=== PATIENT | female | born 1965 | race Caucasian/White ===

== ENCOUNTER → 2019-12-02 10:09 | Outpatient (BNVA) | payer MEDICARE, MEDICAID, SELFPAY | PROVIDERS: PCP Family Medicine; Visit Provider Urology | DX: N30.10 Interstitial cystitis (chronic) without hematuria (principal); K40.90 Unilateral inguinal hernia, without obstruction or gangrene, not specified as recurrent | CPT/HCPCS: 81001 ==

== ENCOUNTER → 2019-12-30 12:22 | Outpatient (BNVA) | payer MEDICARE, MEDICAID, SELFPAY | PROVIDERS: Family Provider Nurse Practitioner Family; PCP Family Medicine; Visit Provider Family Medicine | DX: E03.9 Hypothyroidism, unspecified (principal); M19.90 Unspecified osteoarthritis, unspecified site; G25.81 Restless legs syndrome; F41.9 Anxiety disorder, unspecified; G62.9 Polyneuropathy, unspecified; F32.9 Major depressive disorder, single episode, unspecified; E78.5 Hyperlipidemia, unspecified; J30.2 Other seasonal allergic rhinitis; J44.9 Chronic obstructive pulmonary disease, unspecified; E11.9 Type 2 diabetes mellitus without complications; K52.9 Noninfective gastroenteritis and colitis, unspecified; K21.9 Gastro-esophageal reflux disease without esophagitis; G47.00 Insomnia, unspecified | CPT/HCPCS: 80053; 80061; 83036; 84443; 85025 ==

== ENCOUNTER → 2020-03-30 11:00 | Outpatient (BNVA) | payer MEDICARE, MEDICAID, SELFPAY | PROVIDERS: PCP Family Medicine; Visit Provider Family Medicine | DX: E78.5 Hyperlipidemia, unspecified (principal); M25.50 Pain in unspecified joint; E11.9 Type 2 diabetes mellitus without complications; E03.9 Hypothyroidism, unspecified; G25.81 Restless legs syndrome; J44.9 Chronic obstructive pulmonary disease, unspecified; K21.9 Gastro-esophageal reflux disease without esophagitis; G47.00 Insomnia, unspecified | CPT/HCPCS: 80053; 80061; 83036; 84443; 84550; 85025; 85651; 86431 ==

== ENCOUNTER → 2020-04-22 11:55 | Outpatient (BNVA) | payer MEDICARE, MEDICAID, SELFPAY | PROVIDERS: PCP Family Medicine; Visit Provider Urology | DX: N30.10 Interstitial cystitis (chronic) without hematuria (principal); K40.90 Unilateral inguinal hernia, without obstruction or gangrene, not specified as recurrent | CPT/HCPCS: 80053; 81001; 87077; 87086; 87186 ==

== ENCOUNTER → 2020-06-22 16:42 | Outpatient (BNVA) | payer MEDICARE, MEDICAID, SELFPAY | PROVIDERS: PCP Family Medicine; Visit Provider Family Medicine | DX: E78.5 Hyperlipidemia, unspecified (principal); E11.9 Type 2 diabetes mellitus without complications; E03.9 Hypothyroidism, unspecified; Z79.84 Long term (current) use of oral hypoglycemic drugs; Z79.899 Other long term (current) drug therapy | CPT/HCPCS: 80053; 80061; 83036; 84443; 85025 ==

== ENCOUNTER → 2022-03-08 16:38 | Outpatient (BNVA) | payer MEDICARE, MEDICAID, OTHER, SELFPAY | PROVIDERS: PCP Nurse Practitioner Family; Visit Provider Nurse Practitioner Family | DX: M25.561 Pain in right knee (principal); E78.5 Hyperlipidemia, unspecified; J44.9 Chronic obstructive pulmonary disease, unspecified; E11.9 Type 2 diabetes mellitus without complications; K21.9 Gastro-esophageal reflux disease without esophagitis; E03.9 Hypothyroidism, unspecified; Z78.0 Asymptomatic menopausal state; Z12.31 Encounter for screening mammogram for malignant neoplasm of breast; Z79.899 Other long term (current) drug therapy | CPT/HCPCS: 73562; 80053; 80061; 82306; 83036; 84443 ==

== ENCOUNTER 2022-04-07 13:32 | Outpatient (CLI) | payer MEDICARE, MEDICAID, OTHER, SELFPAY ==
--- NOTE | 2022-04-07 13:39 | MM_ITS ---
WS: [id number] BILATERAL 3D TOMOSYNTHESIS DIGITAL SCREENING MAMMOGRAPHY WITH CAD CLINICAL INFORMATION: screening HISTORY: Screening mammogram. No current complaints. COMPARISON: TECHNIQUE: Bilateral CC and MLO views. FINDINGS: Scattered fibroglandular densities bilaterally. A few incidental punctate calcifications. No suspicio us focal mass, asymmetry, calcifications, or architectural distortion. No evidence of malignancy. MM/[place] [id number] IMPRESSION: BI-RADS: 2-Benign FOLLOW UP: 1 Year Follow-up Recommend return to annual screening mammography.
== END 2022-04-07 13:33 | disposition home or self-care (01) ==
LOC: RAD 13:32
PROVIDERS: PCP Nurse Practitioner Family; Visit Provider Nurse Practitioner Family
DX: Z12.31 Encounter for screening mammogram for malignant neoplasm of breast (principal)
CPT/HCPCS: 77063; 77067

== ENCOUNTER 2022-06-29 14:10 | Outpatient (CLI) | payer MEDICARE, MEDICAID, SELFPAY ==
--- NOTE | 2022-06-29 15:00 | XR_ITS ---
WS: [id number] SCREENING DEXA SCAN [employer] CLINICAL INFORMATION: screening COMPARISON: None. FINDINGS: The L1-L4 bone mineral density measures 1.090 g/cm2. This corresponds to a T score score of -0.8 and Z score of -0.8. Left femoral neck bone mineral density measures 0.832 g/cm2. This corresponds to a T score of -1.4 an d Z score of -1.3. Right femoral neck bone mineral density measures 0.846 g/cm2. This corresponds to a T score -1.3of an d Z score of -1.2. Mean femoral neck bone mineral density measures 0.839 g/cm2. This corresponds to a T score of -1.3 an d Z score of -1.3. XR/XR DEXA axial skeleton* [id number] IMPRESSION: Normal bone mineralization lumbar spine. Osteopenia femoral necks. Patient's FRAX calculated 10 year probability for major osteoporotic fracture i s 8.7 % and osteoporotic hip fracture is 1.3%.
== END 2022-06-29 14:11 | disposition home or self-care (01) ==
LOC: RAD 14:11
PROVIDERS: PCP Nurse Practitioner Family; Visit Provider Nurse Practitioner Family
DX: Z78.0 Asymptomatic menopausal state (principal); M85.88 Other specified disorders of bone density and structure, other site
CPT/HCPCS: 77080

== ENCOUNTER → 2022-07-11 11:43 | Outpatient (BNVA) | payer MEDICARE, MEDICAID, SELFPAY | PROVIDERS: PCP Nurse Practitioner Family; Visit Provider Nurse Practitioner Family | DX: G62.9 Polyneuropathy, unspecified (principal); E03.9 Hypothyroidism, unspecified; K21.9 Gastro-esophageal reflux disease without esophagitis; E11.9 Type 2 diabetes mellitus without complications; J44.9 Chronic obstructive pulmonary disease, unspecified; G25.81 Restless legs syndrome; M79.7 Fibromyalgia; F41.8 Other specified anxiety disorders; E78.5 Hyperlipidemia, unspecified; L30.9 Dermatitis, unspecified; F32.9 Major depressive disorder, single episode, unspecified; J30.2 Other seasonal allergic rhinitis; N30.10 Interstitial cystitis (chronic) without hematuria; F51.5 Nightmare disorder; G47.33 Obstructive sleep apnea (adult) (pediatric); R94.39 Abnormal result of other cardiovascular function study; M85.80 Other specified disorders of bone density and structure, unspecified site | CPT/HCPCS: 80053; 80061; 83036 ==

== ENCOUNTER 2022-09-19 09:26 | Outpatient (CLI) | payer MEDICARE, MEDICAID, SELFPAY | END 2022-09-19 09:27 | disposition home or self-care (01) | LOC: SLEEP 09-23 09:34 | PROVIDERS: PCP Nurse Practitioner Family; Visit Provider Nurse Practitioner Family | DX: G47.33 Obstructive sleep apnea (adult) (pediatric) (principal) | CPT/HCPCS: G0399 ==

== ENCOUNTER → 2022-09-21 13:21 | Outpatient (BNVA) | payer MEDICARE, MEDICAID, SELFPAY | PROVIDERS: PCP Nurse Practitioner Family; Visit Provider Internal Medicine | DX: R07.9 Chest pain, unspecified (principal); E78.5 Hyperlipidemia, unspecified; E11.9 Type 2 diabetes mellitus without complications; Z79.84 Long term (current) use of oral hypoglycemic drugs; J44.9 Chronic obstructive pulmonary disease, unspecified; I73.9 Peripheral vascular disease, unspecified; G47.33 Obstructive sleep apnea (adult) (pediatric) | CPT/HCPCS: 93005; 99204 ==

== ENCOUNTER 2022-10-11 13:34 | Outpatient (CLI) | payer MEDICARE, MEDICAID, SELFPAY ==
--- NOTE | 2022-10-11 13:30 | USCV_ITS ---
Sonam Weinberg Age: 57 Gender: F : 1965 Exam Date: 10/11/2022 14:28 Ordering Phys: Suhail Jacobs M.D ([email or web address]) Technologist: KE Exam Location: [facility] – [place] Indication: BILAT LEG PAIN Risk Factors: Previous Vascular Surgery: RIGHT LEFT BP: 107.0 / 67.00 BP: 107.0/ 81.00 0 0 Waveform Velocity (cm/s) Velocity (cm/s) Waveform Triphasic 118.9 Iliac Prox 97.0 Triphasic Triphasic 130.6 Iliac Mid 94.1 Triphasic Triphasic 128.4 Iliac Distal 95.2 Triphasic Triphasic 108.6 VENETIAN BLIND MAKER 110.4 Triphasic Triphasic 98.6 SFA Prox 90.6 Triphasic Triphasic 84.9 SFA Mid 92.3 Triphasic Triphasic 81.6 SFA Dist 75.2 Triphasic Triphasic 55.1 POP 47.4 Triphasic Triphasic 95.9 COMMUNITY SUPPORT ASSOCIATE 67.6 Triphasic Biphasic 32.9 DPA 34.2 Biphasic 1.4 ELLIOTT 1.2 FINDINGS Resting ELLIOTT of 1.4 on the right and 1.2 on the left side Normal Doppler flow velocities Near normal arterial Doppler waveforms CONCLUSIONS No significant arterial obstruction in the above-mentioned arteries, based on the current findings Dr Venancio Rich MD [facility] (Electronically Signed) Final Date: 12 October 2022 08:53 S
== END 2022-10-11 13:35 | disposition home or self-care (01) ==
PROVIDERS: PCP Nurse Practitioner Family; Visit Provider Internal Medicine
DX: M79.604 Pain in right leg (principal); M79.605 Pain in left leg
CPT/HCPCS: 93925

== ENCOUNTER 2022-10-11 13:36 | Outpatient (CLI) | payer MEDICARE, MEDICAID, SELFPAY ==
--- NOTE | 2022-10-11 14:15 | USCV_ITS ---
Sonam Weinberg Age: 57 Gender: F : 1965 Exam Date: 10/11/2022 14:06 Ordering Phys: Suhail Jacobs M.D ([email or web address]) Technologist: KE Exam Location: [facility] [place] Indication: SHORTNESS OF BREATH BP: 107 / 63 HR: 38 Rhythm: Sinus Technical Quality: Adequate MEASUREMENTS (Male / Female) Normal Values 2D ECHO LVOT Diameter 2.0 cm LV Ejection Fraction MOD 2C 65.7 % LV Ejection Fraction 2C AL 69.8 % LA Diameter 2.8 cm LA Width 2.9 cm LA Height 4.2 cm RA Width 2.6 cm RA Height 3.9 cm Aorta at Sinotubular Diameter 2.2 cm IVC Diameter 1.2 cm M-MODE Aortic Annulus Diameter 2.8 cm LA Ao Ratio MM 0.9 MV E Point Septal Separation 0.6 cm DOPPLER AV Peak Velocity 180.7 cm/s LVOT Peak Velocity 145.0 cm/s AV Area Cont Eq vti 2.5 cm squared AV Area Cont Eq pk 2.5 cm squared MV Peak Velocity 121.0 cm/s MV Area PHT 3.1 cm squared Mitral E to A Ratio 0.8 MV E' Velocity 53.0 cm/s Mitral E to MV E' Ratio 9.5 Mitral E to LV E' Lateral Ratio 9.2 Mitral E to LV E' Septal Ratio 10.0 TR Peak Velocity 228.7 cm/s TR Peak Gradient 20.9 mmHg TR Mean Velocity 186.4 cm/s TR Mean Gradient 14.6 mmHg TR Velocity Time Integral 66.1 cm TV Peak E Velocity 44.0 cm/s Right Atrial Pressure 3.0 mmHg Pulmonary Artery Systolic Pressu 23.9 mmHg PV Peak Velocity 115.0 cm/s RV Acceleration Time 0.1 s RV Ejection Time 0.3 s RV AcT/ET 0.4 FINDINGS Left Ventricle Left ventricle is normal in size. LV systolic function is normal with EF of 60-65%. No regional wall motion abnormalities are seen. Grade 1 disatolic dysfunction Right Ventricle Normal in size and function Right Atrium Normal in size Left Atrium Normal in size Mitral Valve Structurally normal mitral valve. Mild to moderate mitral regurgitation Aortic Valve Grossly normal. No significant stenosis or regurgitation. Tricuspid Valve Trace tricuspid regurgitation. Insufficient TR jet to calulate RVSP Pulmonic Valve Not well visualized Pericardium Normal Aorta Normal in size IVC Appears to be normal CONCLUSIONS LV systolic function is normal with EF of 60 to 65% Grade 1 diastolic dysfunction Mild to moderate mitral regurgitation Trace tricuspid regurgitation No comparison studies available Suhail Jacobs MD (Electronically Signed) Final Date: 12 October 2022 11:45 S
== END 2022-10-11 13:37 | disposition home or self-care (01) ==
PROVIDERS: PCP Nurse Practitioner Family; Visit Provider Internal Medicine
DX: R06.02 Shortness of breath (principal); I08.1 Rheumatic disorders of both mitral and tricuspid valves
CPT/HCPCS: 93306

== ENCOUNTER 2022-11-23 11:04 | Outpatient (CLI) | payer MEDICARE, MEDICAID, SELFPAY ==
--- NOTE | 2022-11-23 11:00 | USCV_ITS ---
Sonam Weinberg Age: 57 Gender: F : 1965 Exam Date: 11/23/2022 11:46 Ordering Phys: Suhail Jacobs M.D ([email or web address]) Technologist: Exam Location: [facility] [place] Indication: PRE SYNCOPE Risk Factors: Previous Vascular Surgery: Right Brachial BP: / Left Brachial BP: / Right Left Velocity (cm/s) Spectral Plaque Velocity (cm/s) Spectral Plaque Syst/Diast Broadening Syst/Diast Broadening 74.90/ 19.30 Prox CCA 88.10 / 21.00 69.60/ 22.50 Mid CCA 90.70 / 27.60 73.90/ 21.40 Distal CCA 105.20/ 30.20 83.80/ 29.80 Prox ICA 45.10 / 11.80 75.00/ 30.90 Mid ICA 69.50 / 26.70 50.90/ 23.10 Distal ICA 70.60 / 23.20 83.50 ECA 92.90 1.12 ICA/CCA 0.67 Antegrade Vertebral Antegrade 55.50/ 20.50 cm/s 35.70/ 11.70 cm/s Tri Subclavian Tri 108.1 118.3 0 0 FINDINGS Comparison: none available. No significant elevation of systolic or diastolic velocities. Waveforms are normal. Minimal carotid atherosclerosis. Anegrade vertebral arteries. CONCLUSIONS Bilateral ICA stenosis less than 50%. Minimal carotid atherosclerosis. Dr. Shanika Licea DO (Electronically Signed) Final Date: 23 November 2022 15:32 S
--- NOTE | 2022-11-23 12:00 | USCV_ITS ---
Sonam Weinberg Age: 57 Gender: F : 1965 Exam Date: 11/23/2022 12:28 Ordering Phys: Suhail Jacobs M.D ([email or web address]) Technologist: Libia Palomino Grinder Lap Exam Location: [facility] [place] Indication: BLE PAIN RIGHT LEFT Brachial 126.00 mmHg Brachial 115.00 mmHg Pressure (mmHg) Waveform Pressure (mmHg) Waveform 161.00 ROD PLACER 190.00 165.00 DPA 181.00 1.31 Ankle/Brachial Index 1.51 96.00 Pre-Exercise Toe Pressure 120.00 0.76 Pre-Exercise Toe/Brachial Index 0.95 FINDINGS Resting ELLIOTT 1.31 on the right and 1.51 on the left Resting TBI of 0.76 on the right and 0.95 on the low CONCLUSIONS Normal resting ABIs and TBIs bilaterally, suggesting no significant arterial obstruction Dr Venancio Rich MD [facility] (Electronically Signed) Final Date: 23 November 2022 17:37 S
== END 2022-11-23 11:05 | disposition home or self-care (01) ==
LOC: RAD 11:17
PROVIDERS: PCP Nurse Practitioner Family; Visit Provider Internal Medicine
DX: R55 Syncope and collapse (principal); M79.605 Pain in left leg; M79.604 Pain in right leg; I65.23 Occlusion and stenosis of bilateral carotid arteries
CPT/HCPCS: 93880; 93922

== ENCOUNTER 2022-12-16 10:35 | Outpatient (CLI) | payer MEDICARE, MEDICAID, SELFPAY ==
--- NOTE | 2022-12-16 | ECG_ITS ---
[facility] Test Date: 2022-12-16 Pat Name: Sonam Weinberg Department: Room: Gender: Female Technology Sales Consultant: : 1965 Requested By: Suhail Jacobs Order Number: [id number] [place] MD: Venancio Rich M.D. Interpretive Statements NAME OF STUDY: LEXISCAN SESTAMIBI STRESS TEST INDICATION: Chest Pain PROCEDURE: At the baseline, the EKG revealed normal sinus rhythm with a normal ST Ts. The baseline heart was 70 bpm with a blood pressue of 127/95 mm of Hg Lexiscan was infused over a period of 20 seconds. A total of 0.4 milligrams of Lexiscan was infused. The stress phase was continued for a total of 5 minutes. Heart rate at the end of the stress phase was 83 bpm with a blood pressure 110/71 mm of Hg. The EKG at the peak infusion revealed no significant changes. Sestamibi was injected 20 seconds after the Lexiscan infusion. Heart rate at the end of the recovery phase was 84 bpm with a blood pressure of 106/60 mm of Hg. CONCLUSION: 1. No significant EKG changes with the LexiScan infusion 2. No LexiScan induced chest pain or cardiac arrhythmia 3. Normal blood pressure and heart rate response 4. Sestamibi/sestamibi perfusion scan pending; see separate report. Electronically Signed On 12-19-2022 0:22:04 CDT by Venancio Rich M.D. [id number]
[2022-12-16 11:55] VITALS: BMI 38.5
--- NOTE | 2022-12-16 11:56 | NMCV_ITS ---
NM kana perf SPECT r/s* [id number] Sonam Weinberg Age: 57 Gender: F : 1965 Exam Date: 12/16/2022 11:53 Ordering Phys: Suhail Jacobs M.D ([email or web address]) Technologist: PATRICIA Chavez Exam Location: [facility] Indications: CHEST PAIN STRESS TEST Please see separate stress test report in [facility] for full findings IMAGE PROTOCOL Rest/Stress 1 Lexiscan Day Radiopharmaceutical Dose (mCi) Administration Site Administered by Rest: Tc-99m 11.0 IV PATRICIA Chavez Sestamibi Stress:Tc-99m 32.7 IV PATRICIA Cardenas Sestamibi Rest: 16-Dec-2022 60 Discovery 630 Stress: 16-Dec-2022 30 Discovery 630 0.4mg Lexiscan. Supine position only as patient was unable to lay prone. SPECT RESULTS Technical Quality: Excellent Raw Data Analysis: Normal Image Corrections: No attenuation or motion correction applied Summed Stress Score: 1 Summed Rest Score: 5 Summed Difference Score: 0 PERFUSION FINDINGS Patchy area of decreased tracer uptake in the inferolateral and apical lateral regions with no significant reversibility FUNCTIONAL RESULTS (calculated via Gated SPECT) Stress Image LV EF (%): 79 Stress EDV (mL):58 TID: 1.07 Stress ESV (mL):12 FUNCTIONAL FINDINGS: Segmental wall motion analysis revealing no gross wall motion abnormalities IMPRESSIONS 1. Myocardial perfusion imaging revealing patchy areas of persistent decreased tracer uptake in the inferolateral and apical regions, most likely represent attenuation artifact. 2. Normal LV ejection fraction 79%. 3. LV wall motion analysis revealing no gross wall motion abnormalities. 4. Normal LV volume No similar previous studies are available for comparison Dr Venancio Rich MD [facility] (Electronically Signed) Final Date: 16 December 2022 18:15 S
[2022-12-16] MEDS: regadenoson 0.4 Mg/5 ml Syringe IVP (12:28)
[2022-12-16 12:48] VITALS: BP 106/69; PULSE 62
== END 2022-12-16 10:36 | disposition home or self-care (01) ==
PROVIDERS: PCP Nurse Practitioner Family; Visit Provider Internal Medicine
DX: R07.9 Chest pain, unspecified (principal)
CPT/HCPCS: 36415; 78452; 93017; 96374; A9500; J2785

== ENCOUNTER → 2022-12-19 13:32 | Outpatient (BNVA) | payer MEDICARE, MEDICAID, SELFPAY | PROVIDERS: PCP Nurse Practitioner Family; Visit Provider Nurse Practitioner Family | DX: R06.02 Shortness of breath (principal); R07.9 Chest pain, unspecified | CPT/HCPCS: 99214 ==

== ENCOUNTER → 2023-01-02 13:59 | Outpatient (BNVA) | payer MEDICARE, MEDICAID, SELFPAY | PROVIDERS: PCP Nurse Practitioner Family; Visit Provider Nurse Practitioner Family | DX: Z00.00 Encounter for general adult medical examination without abnormal findings (principal); M79.7 Fibromyalgia; G62.9 Polyneuropathy, unspecified; Z78.0 Asymptomatic menopausal state; F41.8 Other specified anxiety disorders; K21.9 Gastro-esophageal reflux disease without esophagitis; E11.9 Type 2 diabetes mellitus without complications; E78.5 Hyperlipidemia, unspecified; J44.9 Chronic obstructive pulmonary disease, unspecified; G25.81 Restless legs syndrome; M85.80 Other specified disorders of bone density and structure, unspecified site; E03.9 Hypothyroidism, unspecified; Z12.31 Encounter for screening mammogram for malignant neoplasm of breast; F32.9 Major depressive disorder, single episode, unspecified; F41.9 Anxiety disorder, unspecified; M19.90 Unspecified osteoarthritis, unspecified site; N30.10 Interstitial cystitis (chronic) without hematuria; J30.2 Other seasonal allergic rhinitis | CPT/HCPCS: 80053; 80061; 82306; 83036; 84443 ==

== ENCOUNTER → 2023-02-20 17:00 | Outpatient (BNVA) | payer MEDICARE, MEDICAID, SELFPAY | PROVIDERS: PCP Nurse Practitioner Family; Visit Provider Nurse Practitioner Family | DX: R30.0 Dysuria (principal); T14.8XXA Other injury of unspecified body region, initial encounter; W57.XXXA Bitten or stung by nonvenomous insect and other nonvenomous arthropods, initial encounter | CPT/HCPCS: 80053; 86618; 86666; 86757 ==

== ENCOUNTER → 2023-03-08 13:52 | Outpatient (BNVA) | payer MEDICARE, MEDICAID, SELFPAY | PROVIDERS: PCP Nurse Practitioner Family; Visit Provider Nurse Practitioner Family | DX: R82.2 Biliuria (principal); R19.7 Diarrhea, unspecified; R79.89 Other specified abnormal findings of blood chemistry; E16.2 Hypoglycemia, unspecified; M85.80 Other specified disorders of bone density and structure, unspecified site; R39.9 Unspecified symptoms and signs involving the genitourinary system | CPT/HCPCS: 80053; 82150; 83036; 83690 ==

== ENCOUNTER 2023-03-28 09:16 | Outpatient (CLI) | payer MEDICARE, MEDICAID, SELFPAY ==
--- NOTE | 2023-03-28 09:30 | US_ITS ---
WS: [id number] ULTRASOUND ABDOMEN LIMITED CLINICAL INFORMATION: elevated lft COMPARISON: None. FINDINGS: Liver Size: Normal. Craniocaudal length: 13.2 cm. Echogenicity: Normal. Surface nodularity: None. Mass (size and location): None. Bile ducts Intrahepatic ducts: Normal. Common bile duct diameter: 0.4 cm. Gallbladder Cholecystectomy Pancreas Normal as visualized. Right kidney: Normal. Hydronephrosis: None. Size: 10.2 cm x 4.9 cm x 4.6 cm. Abdominal aorta and IVC Visualized portions are normal. Ascites: None. US/US liver [id number] IMPRESSION: 1. Prior cholecystectomy. 2. Normal liver. 3. Normal common bile duct. 4. No hydronephrosis in RIGHT kidney.
== END 2023-03-28 09:17 | disposition home or self-care (01) ==
LOC: RAD 09:20
PROVIDERS: PCP Nurse Practitioner Family; Visit Provider Nurse Practitioner Family
DX: R79.89 Other specified abnormal findings of blood chemistry (principal); Z90.49 Acquired absence of other specified parts of digestive tract
CPT/HCPCS: 76705; 80053; 82150; 83036; 83690

== ENCOUNTER → 2023-06-13 14:46 | Outpatient (BNVA) | payer MEDICARE, MEDICAID, SELFPAY | PROVIDERS: PCP Nurse Practitioner Family; Visit Provider Nurse Practitioner Family | DX: R79.89 Other specified abnormal findings of blood chemistry (principal); E03.9 Hypothyroidism, unspecified; M79.7 Fibromyalgia; G62.9 Polyneuropathy, unspecified; J44.9 Chronic obstructive pulmonary disease, unspecified; F32.9 Major depressive disorder, single episode, unspecified; J30.2 Other seasonal allergic rhinitis; F41.8 Other specified anxiety disorders; K21.9 Gastro-esophageal reflux disease without esophagitis; N30.10 Interstitial cystitis (chronic) without hematuria; M85.80 Other specified disorders of bone density and structure, unspecified site; G25.81 Restless legs syndrome; L30.9 Dermatitis, unspecified; E11.9 Type 2 diabetes mellitus without complications; E78.5 Hyperlipidemia, unspecified | CPT/HCPCS: 80053; 80061; 83036 ==

== ENCOUNTER → 2023-06-21 14:03 | Outpatient (BNVA) | payer MEDICARE, MEDICAID, SELFPAY | PROVIDERS: PCP Nurse Practitioner Family; Visit Provider Internal Medicine | DX: G47.33 Obstructive sleep apnea (adult) (pediatric) (principal); E78.5 Hyperlipidemia, unspecified; J44.9 Chronic obstructive pulmonary disease, unspecified; R07.9 Chest pain, unspecified; I73.9 Peripheral vascular disease, unspecified; E11.9 Type 2 diabetes mellitus without complications; Z79.84 Long term (current) use of oral hypoglycemic drugs | CPT/HCPCS: 99214 ==

== ENCOUNTER → 2023-10-11 14:27 | Outpatient (BNVA) | payer MEDICARE, MEDICAID, SELFPAY | PROVIDERS: PCP Nurse Practitioner Family; Visit Provider Nurse Practitioner Family | DX: M85.80 Other specified disorders of bone density and structure, unspecified site (principal); J30.2 Other seasonal allergic rhinitis; F41.8 Other specified anxiety disorders; E03.9 Hypothyroidism, unspecified; M19.90 Unspecified osteoarthritis, unspecified site; K21.9 Gastro-esophageal reflux disease without esophagitis; N30.10 Interstitial cystitis (chronic) without hematuria; G25.81 Restless legs syndrome; L30.9 Dermatitis, unspecified; F32.9 Major depressive disorder, single episode, unspecified; E11.9 Type 2 diabetes mellitus without complications; E78.5 Hyperlipidemia, unspecified; R79.89 Other specified abnormal findings of blood chemistry; G62.9 Polyneuropathy, unspecified; E78.2 Mixed hyperlipidemia; M79.7 Fibromyalgia | CPT/HCPCS: 80053; 80061; 83036; 84443 ==

== ENCOUNTER 2023-12-11 15:19 | Outpatient (CLI) | payer MEDICARE, SELFPAY ==
--- NOTE | 2023-12-11 15:26 | XRR_ITS ---
PROCEDURE INFORMATION: Exam: XR Left Hip Exam date and time: 12/11/2023 3:38 PM Age: 58 years old Clinical indication: Patient HX: Left hip pain & leg numb for 5 days TECHNIQUE: Imaging protocol: Radiologic exam of the left hip. Views: 2 or 3 views hip with pelvis when performed. COMPARISON: CT abdomen pelvis w con* [id number] 03/28/2019 8:38 PM FINDINGS: Bones/joints: Left hip joint is unremarkable. Mild degenerative change of the sacroiliac joints. No acute fracture or dislocation. No acute fracture or dislocation. Soft tissues: No significant soft tissue pathology. Vascular calcifications noted in the soft tissues. XR/XR hip LT 2-3V wo/w pel* [id number] IMPRESSION: No acute bony pathology.
== END 2023-12-11 15:20 | disposition home or self-care (01) ==
LOC: RAD 15:22
PROVIDERS: PCP Nurse Practitioner Family; Visit Provider Nurse Practitioner Family
DX: M25.552 Pain in left hip (principal); M54.32 Sciatica, left side
CPT/HCPCS: 73502

== ENCOUNTER → 2023-12-26 10:36 | Outpatient (BNVA) | payer MEDICARE, SELFPAY | PROVIDERS: PCP Nurse Practitioner Family; Referring Provider Nurse Practitioner Family; Visit Provider Surgery | DX: Z12.11 Encounter for screening for malignant neoplasm of colon (principal) | CPT/HCPCS: 99024; 99204 ==

== ENCOUNTER → 2024-01-16 12:01 | Outpatient (BNVA) | payer MEDICARE, MEDICAID, SELFPAY | PROVIDERS: PCP Nurse Practitioner Family; Visit Provider Nurse Practitioner Family | DX: E78.2 Mixed hyperlipidemia (principal); E11.9 Type 2 diabetes mellitus without complications; E03.9 Hypothyroidism, unspecified; F41.8 Other specified anxiety disorders; R79.89 Other specified abnormal findings of blood chemistry; M54.42 Lumbago with sciatica, left side; L30.9 Dermatitis, unspecified; M62.838 Other muscle spasm; M79.7 Fibromyalgia | CPT/HCPCS: 80053; 80061; 83036; 84443; 85025 ==

== ENCOUNTER → 2024-01-17 14:36 | Outpatient (BNVA) | payer MEDICARE, MEDICAID, SELFPAY | PROVIDERS: PCP Nurse Practitioner Family; Visit Provider Specialist | DX: M16.12 Unilateral primary osteoarthritis, left hip | CPT/HCPCS: 73502; 99204 ==

== ENCOUNTER → 2024-05-01 13:10 | Outpatient (BNVA) | payer MEDICARE, SELFPAY | PROVIDERS: PCP Nurse Practitioner Family; Visit Provider Surgery | DX: Z09 Encounter for follow-up examination after completed treatment for conditions other than malignant neoplasm; K52.9 Noninfective gastroenteritis and colitis, unspecified; K51.90 Ulcerative colitis, unspecified, without complications | CPT/HCPCS: 99213 ==

== ENCOUNTER 2024-05-03 10:52 | Outpatient (CLI) | payer MEDICARE, SELFPAY | END 2024-05-03 10:53 | disposition home or self-care (01) | LOC: LAB 10:53 | PROVIDERS: PCP Nurse Practitioner Family; Visit Provider Surgery | DX: R19.7 Diarrhea, unspecified (principal) | CPT/HCPCS: 83630; 83993 ==

== ENCOUNTER → 2024-05-24 13:38 | Outpatient (BNVA) | payer MEDICARE, SELFPAY | PROVIDERS: PCP Nurse Practitioner Family; Visit Provider Nurse Practitioner Family | DX: K51.90 Ulcerative colitis, unspecified, without complications (principal); E11.9 Type 2 diabetes mellitus without complications; N39.0 Urinary tract infection, site not specified; E03.9 Hypothyroidism, unspecified; F41.8 Other specified anxiety disorders | CPT/HCPCS: 80053; 80061; 81015; 82043; 83036; 85025; 85651; 86038; 86140; 87077; 87086; 87184 ==

== ENCOUNTER → 2024-10-28 15:09 | Outpatient (BNVA) | payer MEDICARE, MEDICAID, SELFPAY | PROVIDERS: PCP Nurse Practitioner Family; Visit Provider Nurse Practitioner Family | DX: K51.90 Ulcerative colitis, unspecified, without complications (principal); E11.9 Type 2 diabetes mellitus without complications; E03.9 Hypothyroidism, unspecified; R79.89 Other specified abnormal findings of blood chemistry; F41.8 Other specified anxiety disorders; G25.81 Restless legs syndrome; N30.10 Interstitial cystitis (chronic) without hematuria | CPT/HCPCS: 80053; 80061; 82306; 82607; 82728; 83036; 83735; 84443; 85025 ==

== ENCOUNTER 2025-01-16 12:46 | Outpatient (CLI) | payer MEDICARE, MEDICAID, SELFPAY ==
--- NOTE | 2025-01-16 13:00 | MM_ITS ---
WS: [id number] BILATERAL 3D TOMOSYNTHESIS DIGITAL DIAGNOSTIC MAMMOGRAPHY WITH CAD CLINICAL INFORMATION: R22.31 - Localized swelling, mass and lump, right upper limb HISTORY: RIGHT axillary lump COMPARISON: 2021 TECHNIQUE: Bilateral CC, MLO, and ML views. FINDINGS: Scattered fibroglandular densities bilaterally. A few incidental punctate calcifications. Unremarkable LEFT breast. Ultrasound RIGHT axilla is pending ULTRASOUND BREAST RIGHT TECHNIQUE: Ultrasound right breast focused area of concern. CLINICAL INFORMATION: R22.31 - Localized swelling, mass and lump, right upper limb FINDINGS: Ultrasound RIGHT axilla area of concern. Enlarged but normal-appearing lymph node RIGHT axilla measuring 2.6 x 1.3 cm with preserved fatty hilum. This is likely reactive. No cortical thickening. No other suspicious findings. MM/MM diag BI tomosynthesis [id number] IMPRESSION: DENSITY: There are scattered areas of fibroglandular density. BI-RADS: 2 - Benign. FOLLOW UP: 1 Year Follow-up Recommend return to annual screening mammography.
--- NOTE | 2025-01-16 13:30 | US_ITS ---
WS: [id number] BILATERAL 3D TOMOSYNTHESIS DIGITAL DIAGNOSTIC MAMMOGRAPHY WITH CAD CLINICAL INFORMATION: R22.31 - Localized swelling, mass and lump, right upper limb HISTORY: RIGHT axillary lump COMPARISON: 2021 TECHNIQUE: Bilateral CC, MLO, and ML views. FINDINGS: Scattered fibroglandular densities bilaterally. A few incidental punctate calcifications. Unremarkable LEFT breast. Ultrasound RIGHT axilla is pending ULTRASOUND BREAST RIGHT TECHNIQUE: Ultrasound right breast focused area of concern. CLINICAL INFORMATION: R22.31 - Localized swelling, mass and lump, right upper limb FINDINGS: Ultrasound RIGHT axilla area of concern. Enlarged but normal-appearing lymph node RIGHT axilla measuring 2.6 x 1.3 cm with preserved fatty hilum. This is likely reactive. No cortical thickening. No other suspicious findings. US/US breast RT limited* [id number] IMPRESSION: DENSITY: There are scattered areas of fibroglandular density. BI-RADS: 2 - Benign. FOLLOW UP: 1 Year Follow-up Recommend return to annual screening mammography.
== END 2025-01-16 12:47 | disposition home or self-care (01) ==
PROVIDERS: PCP Nurse Practitioner Family; Visit Provider Nurse Practitioner Family
DX: R59.0 Localized enlarged lymph nodes (principal); R92.323 Mammographic fibroglandular density, bilateral breasts; R92.1 Mammographic calcification found on diagnostic imaging of breast
CPT/HCPCS: 17000; 76642; 77062; 99203; G0279

== ENCOUNTER → 2025-02-03 13:44 | Outpatient (BNVA) | payer MEDICARE, MEDICAID, SELFPAY | PROVIDERS: PCP Nurse Practitioner Family; Visit Provider Nurse Practitioner Family | DX: E78.2 Mixed hyperlipidemia (principal); E11.9 Type 2 diabetes mellitus without complications; F41.8 Other specified anxiety disorders; E03.9 Hypothyroidism, unspecified; R79.89 Other specified abnormal findings of blood chemistry | CPT/HCPCS: 80053; 80061; 83036; 84443; 85025 ==

== ENCOUNTER → 2025-02-13 15:52 | Outpatient (BNVA) | payer MEDICARE, MEDICAID, SELFPAY | PROVIDERS: PCP Nurse Practitioner Family; Visit Provider Nurse Practitioner Family | DX: L98.1 Factitial dermatitis (principal); L40.0 Psoriasis vulgaris; L57.0 Actinic keratosis | CPT/HCPCS: 17000; 99213 ==

== ENCOUNTER → 2025-03-12 11:04 | Outpatient (BNVA) | payer MEDICARE, MEDICAID, SELFPAY | PROVIDERS: PCP Nurse Practitioner Family; Visit Provider Nurse Practitioner Family | DX: K51.90 Ulcerative colitis, unspecified, without complications (principal) | CPT/HCPCS: 83993; 85025 ==

== ENCOUNTER 2025-04-04 12:28 | Outpatient (CLI) | payer OTHER, MEDICAID, SELFPAY ==
--- NOTE | 2025-04-04 12:45 | USCV_ITS ---
Sonam Weinberg Age: 59 Gender: F : 1965 Exam Date: 04/04/2025 13:09 Ordering Phys: Precious Stoll SWEDGER SWEDGER Technologist: LISA Exam Location: [facility] [place] Indication: weakness on feet Risk Factors: Previous Vascular Surgery: Right Brachial BP: / Left Brachial BP: / Right Left Velocity (cm/s) Spectral Plaque Velocity (cm/s) Spectral Plaque Syst/Diast Broadening Syst/Diast Broadening 58.80/ 18.40 Prox CCA 69.10 / 25.00 83.90/ 25.80 Mid CCA 67.20 / 22.20 78.30/ 28.70 Distal CCA 73.40 / 23.00 87.70/ 28.10 Prox ICA 50.70 / 22.10 113.30/32.80 Mid ICA 78.70 / 27.40 63.70/ 21.00 Distal ICA 52.50 / 18.00 71.60 ECA 63.10 1.10 ICA/CCA 0.70 Antegrade Vertebral Antegrade 50.60/ 12.10 cm/s 25.10/ 6.40 cm/s Tri Subclavian Tri 67.50 172.6 0 FINDINGS Comparison:. 11/23/22 No significant elevation of systolic or diastolic velocities. Waveforms are normal. Focal calcified plaque in the bifurcations. CONCLUSIONS No interval change in stenosis since prior exam. Bilateral ICA stenosis less than 50%. Dr. Shanika Licea DO (Electronically Signed) Final Date: 04 April 2025 14:00 S
--- NOTE | 2025-04-04 13:15 | USR_ITS ---
PROCEDURE INFORMATION: Exam: US Duplex Left Lower Extremity Arteries Or Arterial Bypass Grafts Exam date and time: 04/04/2025 1:26 PM Age: 59 years old Clinical indication: Pain; Leg, lower; Left; Additional info: M79.605 - pain in left leg TECHNIQUE: Imaging protocol: Left Real-time duplex scan of the arteries or arterial bypass grafts of the left lower extremity with 2-D morton scale, color Doppler flow and spectral waveform analysis. Images documented and saved. COMPARISON: US CV ankle brachial index [id number] 11/23/2022 12:28 PM FINDINGS: Left common femoral artery: No occlusion or significant stenosis. Normal triphasic waveform. Left superficial femoral artery: No occlusion or significant stenosis. Normal triphasic waveform. Left popliteal artery: No occlusion or significant stenosis. Normal triphasic waveform. Left calf/foot arteries: No occlusion or significant stenosis in the visualized arteries. Normal triphasic waveforms. Dorsalis pedis artery is patent. Left ELLIOTT measures 1.2 US/[place] [id number] IMPRESSION: No stenosis or occlusion.
== END 2025-04-04 12:29 | disposition home or self-care (01) ==
LOC: RAD 12:29
PROVIDERS: PCP Nurse Practitioner Family; Visit Provider Nurse Practitioner Family
DX: M79.605 Pain in left leg (principal); R26.81 Unsteadiness on feet; I65.23 Occlusion and stenosis of bilateral carotid arteries
CPT/HCPCS: 93880; 93926

== ENCOUNTER 2025-04-08 09:08 | Outpatient (CLI) | payer OTHER, MEDICAID, SELFPAY ==
--- NOTE | 2025-04-08 09:30 | USR_ITS ---
US/[place] [id number] PROCEDURE INFORMATION: Exam: US Duplex Left Lower Extremity Veins, Limited Exam date and time: 04/08/2025 9:19 AM Age: 59 years old Clinical indication: Pain; Leg, upper and leg, lower; Left; Additional info: M79.605 - pain in left leg TECHNIQUE: Imaging protocol: Real-time duplex ultrasound of the left extremity with 2-D morton scale, color Doppler flow and spectral waveform analysis including responses to compression and other maneuvers (when performed) with image documentation. Limited exam focused on the left lower extremity veins. COMPARISON: [place] [id number] 04/04/2025 1:26 PM FINDINGS: Left deep veins: Unremarkable. The common femoral, femoral, proximal profunda femoral and popliteal veins are patent without thrombus. Normal Doppler waveforms. Normal compressibility and/or augmentation response. Superficial veins: Greater saphenous vein at the saphenofemoral junction is patent without thrombus. Soft tissues: Unremarkable. Venous reflux times were evaluated. The only significant finding was in the common femoral vein where the reflux time was about 1 second which is at the upper limits of normal. Other areas in the deep and superficial venous systems were normal. IMPRESSION: No evidence of deep vein thrombosis. Borderline reflux time in the left common femoral vein.
== END 2025-04-08 09:09 | disposition home or self-care (01) ==
PROVIDERS: PCP Nurse Practitioner Family; Visit Provider Nurse Practitioner Family
DX: M79.605 Pain in left leg (principal); R93.89 Abnormal findings on diagnostic imaging of other specified body structures
CPT/HCPCS: 93971

== ENCOUNTER → 2025-05-01 12:59 | Outpatient (BNVA) | payer OTHER, MEDICAID, SELFPAY | PROVIDERS: PCP Nurse Practitioner Family; Referring Provider Nurse Practitioner Family; Visit Provider Specialist | DX: M54.42 Lumbago with sciatica, left side (principal); G89.29 Other chronic pain; R20.0 Anesthesia of skin; R20.2 Paresthesia of skin | CPT/HCPCS: 95913 ==

== ENCOUNTER → 2025-05-06 15:00 | Outpatient (BNVA) | payer MEDICARE, SELFPAY | PROVIDERS: PCP Nurse Practitioner Family; Visit Provider Nurse Practitioner Family | DX: M79.7 Fibromyalgia (principal); E11.9 Type 2 diabetes mellitus without complications; E78.2 Mixed hyperlipidemia; R79.89 Other specified abnormal findings of blood chemistry; E03.9 Hypothyroidism, unspecified; F41.8 Other specified anxiety disorders | CPT/HCPCS: 80053; 80061; 82306; 82607; 83036; 83735; 84439; 84443; 85025 ==

== ENCOUNTER → 2025-05-23 10:58 | Outpatient (BNVA) | payer OTHER, MEDICAID, SELFPAY | PROVIDERS: PCP Nurse Practitioner Family; Visit Provider Nurse Practitioner | DX: G56.03 Carpal tunnel syndrome, bilateral upper limbs (principal); M65.331 Trigger finger, right middle finger | CPT/HCPCS: 73110; 99204 ==

== ENCOUNTER 2025-06-12 08:51 | Day surgery (SDC) | payer OTHER, MEDICAID, SELFPAY ==
[2025-06-12] VITALS (11 sets, daily range): BP systolic 93–150; BP diastolic 54–105; PULSE 56–78; RESP 14–18; TEMP 36.1–36.8; O2SAT 91–99
[2025-06-12] MEDS: acetaminophen 1,000 MG/100 ML PIGGYBACK 400 MG IV (09:36)
--- NOTE | 2025-06-12 10:00 | W.PM.OPSUD ---
Surgery/Procedure H&P Update DATE OF PROCEDURE: June 12, 2025 DATE H&P PERFORMED: 05/28/25 H&P UPDATE INFORMATION: I have reviewed H&P completed within last 30 days, I have examined patient prior to procedure, No changes to prior documentation, H&P is in [facility] EMR on date indicated and Risks and benefits of the procedure reviewed PLANNED PROCEDURE: Operation Date: 06/12/25 10:30 Proposed Procedures p RIGHT LONG Finger Trigger Finger Release(Right) - Melissa Goddard MD Related Problem List Diagnoses 1. Trigger middle finger of right hand: Qualifiers: Trigger finger location: middle finger
--- NOTE | 2025-06-12 10:01 | ANES.PREANE2 ---
Pre-Anesthetic Assessment Height/Weight: Height 1.52 m Weight 84.368 kg Temp Pulse Resp BP Pulse Ox O2 Del Method 97.6 F 78 16 137/105 99 Room Air 06/12/25 09:10 06/12/25 09:10 06/12/25 09:10 06/12/25 09:10 06/12/25 09:10 06/12/25 09:14 Operation Date: 06/12/25 10:30 Proposed Procedures p RIGHT LONG Finger Trigger Finger Release(Right) - Melissa Goddard MD Familial anesthetic complications: NOne Was Beta Ana taken within 24 hours: N/A Was Clonidine taken within 24 hours: N/A Last intake: Intake Last Liquid Date 06/11/25 Last Liquid Time 21:30 Last Solid Date 06/11/25 Last Solid Time 20:00 Social No alcohol and No tobacco Exam alert, oriented x 3, clear to auscultation bilaterally and regular rate & rhythm Airway Mallampati: Class II Pulmonary Chronic Obstructive Pulmonary Disease and Sleep Apnea GI Gastroesophageal Reflux Disease Metabolic Hyperlipidemia and Thyroid Disease Anesthetic Plan ASA status: 3 Anesthesia: General Risk of > 500 ml blood loss (7ml/kg in children): No Medications/Allergies Home Medications ?Medication ?Instructions ?Recorded ?Confirmed ?Last Taken ?Type blood sugar diagnostic (Micro 03/08/22 05/28/25 Unknown History Blood Glucose strips) blood-glucose meter 03/08/22 05/28/25 Unknown History coenzyme [id number] E 100 mg-100 1 cap PO DAILY 03/08/22 05/28/25 06/10/25 19:00 History unit capsule aspirin 81 mg tablet 81 mg PO DAILY 04/17/24 05/28/25 06/06/25 07:00 History triamcinolone acetonide 0.5 % 1 applic topical TID PRN Outbreak 04/17/24 06/11/25 04/17/24 History topical cream mv-mn-folic 200 mcg-vit K 15 1 cap PO BID 12/16/24 05/28/25 06/11/25 07:30 History mcg-lutein 5 mg-zeaxanthin 1 mg capsule (PreserVision AREDS 2 Plus Multivit) duloxetine 60 mg capsule,delayed 60 mg PO BID 30 days #60 caps 05/06/25 05/28/25 06/10/25 19:00 Rx release pregabalin 150 mg capsule 150 mg PO BID #60 caps 05/06/25 05/28/25 06/11/25 07:30 Rx ropinirole 0.5 mg tablet 0.5 mg PO TID 30 days #90 tabs 05/06/25 05/28/25 06/11/25 07:30 Rx levothyroxine 150 mcg tablet 150 mcg PO DAILY #90 tabs 05/13/25 05/28/25 06/11/25 07:00 Rx (Synthroid) acetaminophen 650 mg 650 mg PO Q8H 05/28/25 05/28/25 06/11/25 07:30 History tablet,extended release albuterol sulfate 90 mcg/actuation 1 puff inhalation DAILY 05/28/25 05/28/25 Unknown History aerosol inhaler buspirone 15 mg tablet 15 mg PO BID 05/28/25 05/28/25 06/11/25 07:30 History cholecalciferol (vitamin D3) 125 125 mcg PO DAILY 05/28/25 06/12/25 06/11/25 07:30 History mcg (5,000 unit) capsule pantoprazole 40 mg tablet,delayed 40 mg PO DAILY 05/28/25 05/28/25 06/11/25 07:30 History release rosuvastatin 5 mg tablet 5 mg PO BEDTIME 05/28/25 05/28/25 06/10/25 19:00 History sulfasalazine 500 mg tablet 500 mg PO Q6H 05/28/25 06/11/25 06/11/25 07:30 History trazodone 50 mg tablet 50 mg PO BEDTIME 05/28/25 05/28/25 06/10/25 19:00 History pentosan polysulfate sodium 100 mg 100 mg PO BID 06/11/25 06/11/25 06/11/25 07:30 History capsule (Elmiron) Allergies Allergy/AdvReac Type Severity Reaction Status Date / Time aclidinium (From Tudorza Allergy Unknown Verified 05/28/25 14:33 Pressair) Current Medications Generic Name Dose Route Start Last Admin Trade Name Freq PRN Reason Stop Dose Admin Sodium Chloride 1,000 mls @ 30 mls/hr 06/12/25 09:00 06/12/25 09:36 Sodium Chloride 0.9% IV 06/13/25 08:59 30 mls/hr .Q24H SCOTT Administration PFSH Anesthesia Medical History (Updated 05/29/25 @ 20:14 by TAMMIE Spencer) Trigger middle finger of right hand Bilateral carpal tunnel syndrome Paroxysmal SVT (supraventricular tachycardia) Left inguinal hernia Interstitial cystitis Fibromyalgia Depression with anxiety DDD (degenerative disc disease) GERD (gastroesophageal reflux disease) Neuropathy Diabetes Hyperlipemia COPD (chronic obstructive pulmonary disease) Restless leg syndrome Carpal tunnel syndrome on right Surgical History History of cholecystectomy History of carpal tunnel release History of bladder repair surgery History of partial hysterectomy History of foot surgery Normal colonoscopy 2015 Family History Other Diabetes Hypothyroidism Social History Smoking and tobacco/nicotine status: never used tobacco/nicotine Alcohol intake: never Substance/Drug Use: never Adopted: No Caregiver/support person: No Marital status: Current occupational status: disabled Current gender identity: Female Data Anesthesia Cardiac Studies: Echocardiogram 10/11/22 Sestamibi Stress Test (Cardiology) 12/16/22
[2025-06-12] MEDS: ceFAZolin 2,000 mg SDV 2000 MG IVP (10:31)
[2025-06-12] MEDS: BUPivacaine 0.5% INJ 30 mL XX (11:01)
--- NOTE | 2025-06-12 11:21 | P.OP_ITS ---
Operative Report Date of procedure: June 12, 2025 Pre-op diagnosis: Right long finger triggering Post-op diagnosis: Right long finger triggering Post-op findings: Significant tightness of the A1 kristie and fibrous tissues proximal to the A1 kristie Procedure done: Right long trigger finger release Implants: None Specimens removed/disposition: None Pathology: None Surgeon: Melissa Goddard MD Engineering Faculty Member: None Anesthesia: General (Per LMA, ASA 3) Estimated blood loss (mL): 1 Tourniquet time (min): 11 (At 250 mmHg) IV fluids (mL): 400 Urine output (mL): 0 (No Devine) Complications: None Findings: As noted above Condition: stable Disposition: PACU (Then return to same-day surgery for discharge to home) Brief History: This 59-year-old woman presented to the office complaining of bilateral carpal tunnel syndrome and triggering of the right long finger. Although the patient had findings of carpal tunnel syndrome per nerve conduction study, she was not interested in having this addressed, but insisted upon just addressing the painful triggering of the right long finger. Plans are made for the surgery. Risks and complications were discussed, and consents were signed. Procedure: Patient was brought to the operating theater. She was placed on the operating room table. General anesthesia per LMA, ASA 3, was administered uneventfully. A tourniquet was placed high on the arm and was elevated to 250 mmHg following exsanguination. Tourniquet time was 11 minutes. Surgical pause was performed prior to commencement of the surgical procedure. At the time of the surgical pause we identified the site and side of surgery. We also identified the patient's identity and appropriate administration of IV antibiotics, Ancef 2 g. Following the surgical pause, an incision was made along the distal palmar crease beneath the long fingers. Dissection continued through the skin to the subcutaneous tissues using a scalpel. Blunt dissection was then utilized to spread soft tissues and allow access to the A1 kristie. It was then incised longitudinally and sharply using a knife. This was accomplished without diffic ulty and atraumatically. Once the A1 kristie was released, attention was directed more proximally in the palm. This was released as well. Following this, tendons were brought up out of the wound and evaluated. There were no gross masses on the tendons. Tendons were returned to normal position. We then irrigated the wound and subsequently closed it with 3-0 nylon with an interrupted mattress type suture. Following closure of the wound, the wound was injected with bupivacaine plain into the subcutaneous tissues as a local anesthetic. Sterile dressing was then placed consisting of Dermabond, OpSite, fluffed fluffs, sterile soft roll, and an Andrew wrap. The patient was returned to recovery in satisfactory condition. She will be discharged home to follow-up with me in the office. There were no complications and no specimens. Related Problem List Diagnoses 1. Trigger middle finger of right hand:
--- NOTE | 2025-06-12 12:15 | ANE.PACU2 ---
Inpatient post-anesthesia follow up: Airway intact: Yes Vital signs: Temperature 97.0 F Pulse Rate 56 Respiratory Rate 18 Blood Pressure 148/72 Pulse Oximetry 99 Oxygen Delivery Me thod Room Air Oxygen Flow Rate 6 Fraction of Inspir ed Oxygen Hydration adequate: Yes Nausea and vomiting: No Pain level: 1 Mental status: Baseline
== END 2025-06-12 12:17 | disposition home or self-care (01) ==
PROVIDERS: PCP Nurse Practitioner Family; Visit Provider Specialist
PROC: (CPT 26055; principal; 2025-06-12 10:20)
DX: M65.331 Trigger finger, right middle finger (principal); J44.9 Chronic obstructive pulmonary disease, unspecified; K21.9 Gastro-esophageal reflux disease without esophagitis; E07.9 Disorder of thyroid, unspecified; E78.5 Hyperlipidemia, unspecified; I47.19 Other supraventricular tachycardia; M79.7 Fibromyalgia; F41.8 Other specified anxiety disorders; G62.9 Polyneuropathy, unspecified; E11.9 Type 2 diabetes mellitus without complications; Z79.82 Long term (current) use of aspirin; G47.33 Obstructive sleep apnea (adult) (pediatric)
CPT/HCPCS: 26055; J0131; J0690; J2250; J2405; J2704; J3010; J3490; J7030; J9999

== ENCOUNTER → 2025-06-23 12:47 | Outpatient (BNVA) | payer OTHER, SELFPAY | PROVIDERS: PCP Nurse Practitioner Family; Visit Provider Nurse Practitioner | DX: Z98.890 Other specified postprocedural states (principal) | CPT/HCPCS: 99024 ==

== ENCOUNTER → 2025-08-11 15:05 | Outpatient (BNVA) | payer OTHER, SELFPAY | PROVIDERS: PCP Nurse Practitioner Family; Visit Provider Nurse Practitioner Family | DX: M79.7 Fibromyalgia (principal); F41.8 Other specified anxiety disorders; E11.9 Type 2 diabetes mellitus without complications; R79.89 Other specified abnormal findings of blood chemistry; E03.9 Hypothyroidism, unspecified | CPT/HCPCS: 80053; 80061; 82306; 82607; 83036; 84439; 84443; 85025 ==